=== PATIENT | female | born 1965 | race Caucasian/White ===

== ENCOUNTER 2019-04-25 09:58 | Emergency (ER) | payer SELFPAY ==
[~2019-04-25] VITALS: Wt 73.8 kg
[~2019-04-25 09:58] MED LIST: MAG355OR14 PO; NAPR-985 PO
[2019-04-25] MEDS ORDERED: LIDOCAINE/MYLANTA 40 ML BTL PO ONE (12:00)
[2019-04-25 12:22] VITALS: BP 180/84; PULSE 60; RESP 18
== END 2019-04-25 12:22 | disposition home or self-care (01) ==
LOC: FTE 09:58
DX: R09.89 Other specified symptoms and signs involving the circulatory and respiratory systems (principal)
CPT/HCPCS: 99283